=== PATIENT | female | born 1985 | race Caucasian/White ===

== ENCOUNTER 2020-01-27 14:05 | Observation (INO) | payer OTHER ==
[~2020-01-27] VITALS: Ht 157.5 cm; Wt 79.4 kg
[2020-01-27] MEDS ORDERED: LEVO125 PO (14:10)
[2020-01-27] MEDS ORDERED: PREN-217 PO (14:10)
[2020-01-27] MEDS ORDERED: FOLI-130 PO (14:10)
[2020-01-27 14:29] VITALS: BP 111/72
== END 2020-01-27 15:50 | disposition home or self-care (01) ==
LOC: 4S 14:05
PROVIDERS: ADMIT Obstetrics & Gynecology; ATTEND Obstetrics & Gynecology
DX: O36.5930 Maternal care for other known or suspected poor fetal growth, third trimester, not applicable or unspecified (principal); Z3A.37 37 weeks gestation of pregnancy
CPT/HCPCS: 59025; 76805; 81001; G0378

== ENCOUNTER 2020-02-05 12:30 | Observation (INO) | payer OTHER ==
[~2020-02-05] VITALS: Ht 160 cm; Wt 81.2 kg
[~2020-02-05 12:30] MED LIST: FOLI-130 PO; LEVO125 PO; PREN-217 PO
[2020-02-05 13:49] VITALS: BP 99/57
== END 2020-02-05 16:00 | disposition home or self-care (01) ==
LOC: 4S 12:30
PROVIDERS: ADMIT Obstetrics & Gynecology Obstetrics; ATTEND Obstetrics & Gynecology Obstetrics
DX: O26.893 Other specified pregnancy related conditions, third trimester (principal); Z3A.38 38 weeks gestation of pregnancy
CPT/HCPCS: 36415; 59025; 76805; 81002; 89060; G0378

== ENCOUNTER 2020-02-08 14:15 | Inpatient (IN) | payer OTHER ==
[~2020-02-08] VITALS: Ht 162.6 cm; Wt 81.6 kg
[2020-02-08] MEDS ORDERED: OXYTOCIN 30 UNITS/LACT RINGERS 500 ML IV ONE ×2 (14:28→21:20)
[2020-02-08] MEDS ORDERED: RINGERS SOLUTION,LACTATED 1,000 ML IV SCH (14:28)
[2020-02-08] MEDS ORDERED: RINGERS SOLUTION,LACTATED 1,000 ML IV PRN (14:28)
[2020-02-08] MEDS ORDERED: METOCLOPRAMIDE HCL 5 MG/ML 2 ML VIAL IVP PRN ×2 (14:30→21:30)
[2020-02-08] MEDS ORDERED: CITRIC ACID/SODIUM CITRATE 30 ML SOLUTION UDCUP PO PRN ×2 (14:30→21:30)
[2020-02-08] MEDS ORDERED: TERBUTALINE SULFATE 1 MG/ML VIAL SQ PRN (14:30)
[2020-02-08] MEDS ORDERED: MISOPROSTOL 50 MCG TABLET PO ONE (14:30)
[2020-02-08] MEDS ORDERED: METHYLERGONOVINE MALEATE 0.2 MG/ML VIAL IM PRN (14:30)
[2020-02-08] MEDS ORDERED: FentaNYL CITRATE-PF 100 MCG/2 ML VIAL IVP PRN (14:30)
[2020-02-08] MEDS ORDERED: LIDOCAINE/PF 1% 30 ML VIAL INJ PRN ×2 (14:30→21:30)
[2020-02-08] MEDS ORDERED: LEVO150 PO (14:35)
[2020-02-08 15:09] VITALS: BP 106/71
[2020-02-08 15:55] LABS: BASOPHILS % (AUTO) 0.1 % (0.0-2.0); HEMATOCRIT 38.3 % (36-46); LYMPHOCYTES # (AUTO) 1.9 K/uL (1.0-4.8); LYMPHOCYTES % (AUTO) 18.5 % (22.0-44.0); MEAN CORPUSCULAR HEMOGLOBIN 30.3 pg (26.0-34.0); MEAN CORPUSCULAR HGB CONC 34.1 G/dL (31.0-37.0); MEAN CORPUSCULAR VOLUME 89 fL (80-100); NEUTROPHILS # (AUTO) 7.2 K/uL (1.8-7.7); NEUTROPHILS % (AUTO) 70.4 % (40.0-70.0); PLATELET COUNT (AUTO)-OB 212 K/uL (150-450); RED BLOOD CELL COUNT(AUTO) 4.31 MIL/uL (4.00-5.20); RED CELL DISTRIBUTION WIDTH 13.1 % (11.5-14.5)
[2020-02-08] MEDS ORDERED: OXYGEN THERAPY IH SCH (20:00)
[2020-02-08] MEDS ORDERED: RINGERS SOLUTION,LACTATED 1,000 ML IV ONE (21:20)
[2020-02-09] MEDS: MISOPROSTOL 50 MCG TABLET PO SCH ×2 (00:50→04:03)
[2020-02-09] MEDS: RINGERS SOLUTION,LACTATED 1,000 ML IV SCH ×2 (00:51→07:15)
[2020-02-09] MEDS ORDERED: ROPIVACAINE HCL/PF 0.2% 100 ML ED ONE ×2 (05:51→09:53)
[2020-02-09] MEDS: LEVOTHYROXINE SODIUM 150 MCG TABLET PO SCH (06:34)
[2020-02-09] MEDS ORDERED: ROPIVACAINE HCL/PF 0.2% 100 ML ED PRN (10:58)
[2020-02-09] MEDS ORDERED: ONDANSETRON HCL 4 MG/2 ML VIAL IVP PRN (11:00)
[2020-02-09] MEDS ORDERED: OXYTOCIN 20 UNITS/LACT RINGERS 1,000 ML IV ONE (19:35)
[2020-02-10] MEDS ORDERED: MEASLES/MUMPS/RUBELLA VACCINE, LIVE 0.5 ML/VIAL SQ ONE (01:45)
[2020-02-10] MEDS ORDERED: LANOLIN 7 GM OINTMENT TP PRN (01:45)
[2020-02-10] MEDS ORDERED: OXYTOCIN 20 UNITS/LACT RINGERS 1,000 ML IV SCH (01:45)
[2020-02-10] MEDS: BENZOCAINE 20%/MENTHOL 56 GM SPRAY CANISTER TP PRN (03:50)
[2020-02-10] MEDS: GLYCERIN/WITCH HAZEL LEAF 40 PADS JAR TP PRN (03:50)
[2020-02-10] MEDS: ACETAMINOPHEN/CODEINE 300-30 MG TABLET PO PRN ×2 (05:13→22:14)
[2020-02-10] MEDS: LEVOTHYROXINE SODIUM 150 MCG TABLET PO SCH (06:21)
[2020-02-10] MEDS: IBUPROFEN 600 MG TABLET PO PRN ×3 (08:20→20:59)
[2020-02-10] MEDS: MAGNESIUM HYDROXIDE SUSPENSION 30 ML UDCUP PO PRN ×2 (08:20→20:59)
[2020-02-10] MEDS: SENNA/DOCUSATE SODIUM 8.6-50 MG TABLET PO PRN (20:59)
[2020-02-11] MEDS: ACETAMINOPHEN/CODEINE 300-30 MG TABLET PO PRN (01:31)
[2020-02-11] MEDS: LEVOTHYROXINE SODIUM 150 MCG TABLET PO SCH (06:25)
[2020-02-11 06:48] LABS: BASOPHILS % (AUTO) 0.2 % (0.0-2.0); EOSINOPHILS % (AUTO) 1.1 % (1.0-6.0); HEMATOCRIT 29.4 % (36-46); HEMOGLOBIN 9.9 g/dL (12.0-16.0); LYMPHOCYTES # (AUTO) 2.1 K/uL (1.0-4.8); LYMPHOCYTES % (AUTO) 16.4 % (22.0-44.0); MEAN CORPUSCULAR HEMOGLOBIN 30.5 pg (26.0-34.0); MEAN CORPUSCULAR HGB CONC 33.7 G/dL (31.0-37.0); MEAN CORPUSCULAR VOLUME 90 fL (80-100); MONOCYTES # (AUTO) 1.1 K/uL (0.1-1.0); MONOCYTES % (AUTO) 8.7 % (2.0-9.0); NEUTROPHILS # (AUTO) 9.3 K/uL (1.8-7.7); NEUTROPHILS % (AUTO) 73.6 % (40.0-70.0); PLATELET COUNT (AUTO)-OB 154 K/uL (150-450); RED BLOOD CELL COUNT(AUTO) 3.25 MIL/uL (4.00-5.20); RED CELL DISTRIBUTION WIDTH 13.3 % (11.5-14.5)
[2020-02-11] MEDS: IBUPROFEN 600 MG TABLET PO PRN (08:35)
[2020-02-11] MEDS: MAGNESIUM HYDROXIDE SUSPENSION 30 ML UDCUP PO PRN (08:37)
[2020-02-11] MEDS: SENNA/DOCUSATE SODIUM 8.6-50 MG TABLET PO PRN (08:38)
[2020-02-11] MEDS ORDERED: IBUP-2070 PO (12:44)
[2020-02-11] MEDS ORDERED: FERR-89 PO (12:45)
[2020-02-11] MEDS: BENZOCAINE 20%/MENTHOL 56 GM SPRAY CANISTER TP PRN (13:32)
[2020-02-11] MEDS: GLYCERIN/WITCH HAZEL LEAF 40 PADS JAR TP PRN (13:32)
== END 2020-02-11 14:45 | disposition home or self-care (01) | DRG 807 ==
LOC: 4S 14:15 → OBSVTOIN 14:15 → 4S 02-10 08:00
PROVIDERS: ADMIT Obstetrics & Gynecology Obstetrics; ATTEND Obstetrics & Gynecology Obstetrics
PROC: 10907ZC Drainage of Amniotic Fluid, Therapeutic from Products of Conception, Via Natural or Artificial Opening (ICD-10-PCS; principal; 2020-02-10)
PROC: 10E0XZZ Delivery of Products of Conception, External Approach (ICD-10-PCS; 2020-02-10)
PROC: 0KQM0ZZ Repair Perineum Muscle, Open Approach (ICD-10-PCS; 2020-02-10)
PROC: 0W8NXZZ Division of Female Perineum, External Approach (ICD-10-PCS; 2020-02-10)
PROC: 3E0R3BZ Introduction of Anesthetic Agent into Spinal Canal, Percutaneous Approach (ICD-10-PCS; 2020-02-10)
PROC: 00HU33Z Insertion of Infusion Device into Spinal Canal, Percutaneous Approach (ICD-10-PCS; 2020-02-10)
DX: O70.1 Second degree perineal laceration during delivery (principal); Z37.0 Single live birth; Z3A.39 39 weeks gestation of pregnancy
CPT/HCPCS: 59025; 86850; 86900; 86901; J2590; J2795; J7120